=== PATIENT | female | born 1950 ===

== ENCOUNTER 2018-02-09 06:00 | Day surgery (SDC) | payer OTHER ==
[~2018-02-09] VITALS: Ht 160 cm; Wt 74.4 kg
[~2018-02-09 06:00] MED LIST: CLONAZEPAM1 MG PO; COZAAR100 MG PO; METFORMIN HCL500 MG PO; OMEPRAZOLE20 M1 PO; PROPRANOLOL HCL20 MG PO; VITAMIN D5000 UNIT PO; [UNRECOGNIZED DRUG - OTHER] PO
[2018-02-10] MEDS ORDERED: PERCOCET 5-3251 EACH PO (10:18)
== END 2018-02-10 08:00 | disposition home or self-care (01) ==
LOC: CIR.AMB 06:00 → O/R 07:00 → EDSTATUS 11:00 → O/R 11:00 → SURH 13:55 → CIR.AMB 02-10 08:00 → SURH 02-10 12:07 → O/R 02-10 12:07
DX: E05.00 Thyrotoxicosis with diffuse goiter without thyrotoxic crisis or storm (principal)